=== PATIENT | male | born 1950 | race Two or more races ===

== ENCOUNTER → 2017-04-16 | Outpatient (CLI) | payer MEDICARE, OTHER ==
[2017-04-16 09:17] LABS: Basophils # (auto) 0 uL; Basophils % (auto) 0.8 % (0.0-2.0); CONDITION Y; Eosinophils # (auto) 0.2 uL; Eosinophils % (auto) 3.9 % (0.0-7.0); Hematocrit 49.9 % (41.0-53.0); Lymphocytes # (auto) 1.7 uL; Lymphocytes % (auto) 30.7 % (10.0-50.0); Mean Corpuscular Hemoglobin 29.2 pg (28.0-32.0); Mean Corpuscular Hgb Conc. 34.1 g/dL (32.0-36.0); Mean Corpuscular Volume 85.7 fL (80.0-100.0); Mean Platelet Volume 10.1 fL (7.4-10.4); Monocytes # (auto) 0.4 uL; Monocytes % (auto) 6.8 % (0.0-12.0); Neutrophils # (auto) 3.1 uL; Neutrophils % (auto) 57.8 % (37.0-80.0); Platelet Count (auto) 188 10^3/uL (140-450); Red Cell Distribution Width 13.4 % (11.6-16.0); White Blood Cell 5.4 10^3/uL (4.4-10.8)
[2017-04-16 09:28] LABS: Urine Bilirubin Negative (Negative); Urine Blood TRACE /uL (Negative); Urine Color Yellow (Yellow); Urine Glucose Normal (Normal); Urine Ketone Negative (Negative); Urine Mucus FEW (None Seen); Urine Nitrite Negative (Negative); Urine RBC 1 /hpf (0 - 3); Urine Squamous Epithelial Cell FEW /hpf (<5); Urine Urobilinogen Normal (Negative); Urine pH 5.5 (5.0-8.0)
[2017-04-16 10:08] LABS: Albumin 3.8 g/dL (3.4-5.0); BUN/Creatinine Ratio 16.8; Bilirubin, Total 0.8 mg/dL (0.2-1.0); Calcium 8.6 mg/dL (8.5-10.1); Potassium 4.1 mmol/L (3.5-5.1); Total Protein 7.2 g/dL (6.4-8.2)
== END | disposition home or self-care (01) ==
LOC: LAB 07:05
PROVIDERS: ATTEND Internal Medicine
DX: Z00.00 Encounter for general adult medical examination without abnormal findings (principal); I10 Essential (primary) hypertension; E78.2 Mixed hyperlipidemia; E55.9 Vitamin D deficiency, unspecified
CPT/HCPCS: 36415; 80053; 80061; 81001; 82306; 84153; 85025

== ENCOUNTER → 2018-06-10 | Outpatient (CLI) | payer MEDICARE, OTHER ==
[2018-06-10 10:57] LABS: Basophils # (auto) 0 uL; Basophils % (auto) 0.7 % (0.0-2.0); Eosinophils # (auto) 0.2 uL; Eosinophils % (auto) 3.7 % (0.0-7.0); Hematocrit 49.7 % (41.0-53.0); Hemoglobin 16.8 g/dL (13.5-17.5); Lymphocytes # (auto) 1.9 uL; Lymphocytes % (auto) 31.5 % (10.0-50.0); Mean Corpuscular Hgb Conc. 33.9 g/dL (32.0-36.0); Mean Corpuscular Volume 85.5 fL (80.0-100.0); Monocytes # (auto) 0.4 uL; Monocytes % (auto) 6.8 % (0.0-12.0); Neutrophils # (auto) 3.4 uL; Neutrophils % (auto) 57.3 % (37.0-80.0); Nucleated Red Blood Cells % 0.2 %; Platelet Count (auto) 177 10^3/uL (140-450); Red Blood Cells 5.81 10^6/uL (4.5-5.90); Red Cell Distribution Width 13.8 % (11.8-14.3); White Blood Cell 5.9 10^3/uL (4.4-10.8)
[2018-06-10 12:19] LABS: Albumin 3.8 g/dL (3.4-5.0); BUN/Creatinine Ratio 21.7; Bilirubin, Total 0.8 mg/dL (0.2-1.0); Potassium 4.7 mmol/L (3.5-5.1); Total Protein 7.3 g/dL (6.4-8.2)
== END | disposition home or self-care (01) ==
LOC: LAB 10:02
PROVIDERS: ATTEND Physician Assistant
DX: K21.9 Gastro-esophageal reflux disease without esophagitis (principal); K75.81 Nonalcoholic steatohepatitis (NASH); L40.9 Psoriasis, unspecified; F41.9 Anxiety disorder, unspecified; E78.2 Mixed hyperlipidemia; R01.1 Cardiac murmur, unspecified
CPT/HCPCS: 36415; 80053; 80061; 85025

== ENCOUNTER → 2019-02-08 | Outpatient (CLI) | payer MEDICARE, OTHER | END | disposition home or self-care (01) | LOC: LAB 13:42 | PROVIDERS: ATTEND Registered Nurse General Practice | DX: N39.0 Urinary tract infection, site not specified (principal) | CPT/HCPCS: 87086 ==

== ENCOUNTER → 2019-02-18 | Outpatient (CLI) | payer MEDICARE, OTHER ==
[2019-02-18 15:48] LABS: Urine Bacteria NONE SEEN /hpf (None Seen); Urine Blood Negative /uL (Negative); Urine Mucus FEW (None Seen); Urine Specific Gravity 1.032 (1.001-1.035); Urine WBC 1 /hpf (0 - 3)
== END | disposition home or self-care (01) ==
LOC: LAB 14:50
PROVIDERS: ATTEND Urology
DX: R39.0 Extravasation of urine (principal)
CPT/HCPCS: 81001; 87086

== ENCOUNTER → 2019-03-19 | Day surgery (SDC) | payer MEDICARE, OTHER ==
[2019-03-16 11:08] LABS: Basophils # (auto) 0.1 uL; Basophils % (auto) 0.9 % (0.0-2.0); Eosinophils # (auto) 0.2 uL; Eosinophils % (auto) 3.6 % (0.0-7.0); Hematocrit 50.6 % (41.0-53.0); Hemoglobin 17.4 g/dL (13.5-17.5); Lymphocytes # (auto) 1.4 uL; Lymphocytes % (auto) 23.6 % (10.0-50.0); Mean Corpuscular Hemoglobin 29.7 pg (28.0-32.0); Mean Corpuscular Hgb Conc. 34.3 g/dL (32.0-36.0); Mean Corpuscular Volume 86.6 fL (80.0-100.0); Monocytes # (auto) 0.5 uL; Monocytes % (auto) 8.6 % (0.0-12.0); Neutrophils # (auto) 3.8 uL; Neutrophils % (auto) 63.3 % (37.0-80.0); Nucleated Red Blood Cells % 0.8 %; Platelet Count (auto) 172 10^3/uL (140-450); Red Blood Cells 5.85 10^6/uL (4.5-5.90); Red Cell Distribution Width 13.8 % (11.8-14.3)
[2019-03-16 11:25] LABS: INR 1.06 (0.9-1.15); Partial Thromboplastin Time 27.8 sec (23.64-32.05); Prothrombin Time 11.4 sec (9.06-12.60)
[~2019-03-19] VITALS: Ht 170.2 cm; Wt 74.8 kg
[~2019-03-19] MED LIST: DIAZ10TA PO; SODIUM CHLORIDE LOCK 10 ML ONE; TAM04C PO; diphenhdrAMINE HCL 50 MG/1 ML VL ONE
[2019-03-19] MEDS: fentaNYL CITRATE 100 MCG/2 ML VL ONE ×2 (10:00→10:03)
[2019-03-19] MEDS: MIDAZOLAM HCL 5 MG/ML-1ML VIAL ONE ×2 (10:00→10:03)
[2019-03-19 10:39] VITALS: BP 107/70
== END | disposition home or self-care (01) ==
LOC: GI 07:46
PROVIDERS: ATTEND Internal Medicine Gastroenterology
DX: Z12.11 Encounter for screening for malignant neoplasm of colon (principal); K64.8 Other hemorrhoids; Z98.890 Other specified postprocedural states; Z91.041 Radiographic dye allergy status
CPT/HCPCS: 36415; 85025; 85610; 85730; G0121; J1200; J2250; J3010; J7030; G0500

== ENCOUNTER → 2019-03-29 | Outpatient (CLI) | payer MEDICARE, OTHER ==
[~2019-03-29] MED LIST changes: -SODIUM CHLORIDE LOCK 10 ML ONE; -diphenhdrAMINE HCL 50 MG/1 ML VL ONE
== END | disposition home or self-care (01) ==
LOC: LAB 10:10
PROVIDERS: ATTEND Urology
DX: N40.0 Benign prostatic hyperplasia without lower urinary tract symptoms (principal)
CPT/HCPCS: 84153

== ENCOUNTER → 2019-04-19 | Outpatient (CLI) | payer MEDICARE, OTHER ==
[2019-04-19 09:32] LABS: Basophils # (auto) 0 uL; Basophils % (auto) 0.8 % (0.0-2.0); Eosinophils # (auto) 0.2 uL; Eosinophils % (auto) 3.3 % (0.0-7.0); Hematocrit 48.1 % (41.0-53.0); Hemoglobin 16.3 g/dL (13.5-17.5); Lymphocytes # (auto) 1.3 uL; Mean Corpuscular Hemoglobin 29.4 pg (28.0-32.0); Mean Corpuscular Hgb Conc. 33.8 g/dL (32.0-36.0); Mean Corpuscular Volume 86.9 fL (80.0-100.0); Monocytes # (auto) 0.4 uL; Monocytes % (auto) 8.5 % (0.0-12.0); Neutrophils # (auto) 3.2 uL; Neutrophils % (auto) 61.4 % (37.0-80.0); Nucleated Red Blood Cells % 0.2 %; Platelet Count (auto) 141 10^3/uL (140-450); Red Blood Cells 5.54 10^6/uL (4.5-5.90); Red Cell Distribution Width 13.7 % (11.8-14.3); White Blood Cell 5.2 10^3/uL (4.4-10.8)
[2019-04-19 09:50] LABS: Albumin 4.1 g/dL (3.4-5.0); Calcium 8.6 mg/dL (8.5-10.1); Potassium 4.1 mmol/L (3.5-5.1)
[2019-04-19 09:56] LABS: Bilirubin, Total 0.8 mg/dL (0.2-1.0); Total Protein 7.3 g/dL (6.4-8.2)
== END | disposition home or self-care (01) ==
LOC: LAB 08:29
PROVIDERS: ATTEND Physician Assistant
DX: N40.0 Benign prostatic hyperplasia without lower urinary tract symptoms (principal); E78.2 Mixed hyperlipidemia; K75.81 Nonalcoholic steatohepatitis (NASH)
CPT/HCPCS: 36415; 80053; 80061; 84153; 85025

== ENCOUNTER 2021-09-14 11:40 | Emergency (ER) | payer MEDICARE, OTHER ==
[~2021-09-14] VITALS: Ht 170.2 cm; Wt 74.8 kg
[2021-09-14 14:16] LABS: Basophils # (auto) 0.1 10 ^3/uL (0-0.2); Basophils % (auto) 1.2 % (0.0-2.0); Eosinophils # (auto) 0.2 10 ^3/uL (0-0.8); Eosinophils % (auto) 3.9 % (0.0-7.0); Hemoglobin 17.3 g/dL (13.5-17.5); Lymphocytes # (auto) 1.5 10 ^3/uL (0.4-5.4); Lymphocytes % (auto) 28.2 % (10.0-50.0); Mean Corpuscular Hemoglobin 29.5 pg (28.0-32.0); Mean Corpuscular Hgb Conc. 33.9 g/dL (32.0-36.0); Monocytes # (auto) 0.3 10 ^3/uL (0-1.3); Monocytes % (auto) 4.9 % (0.0-12.0); Neutrophils # (auto) 3.3 10 ^3/uL (1.6-8.6); Neutrophils % (auto) 61.8 % (37.0-80.0); Nucleated Red Blood Cells % 0.1 %; Red Blood Cells 5.86 10^6/uL (4.5-5.90); Red Cell Distribution Width 13.5 % (11.8-14.3); White Blood Cell 5.4 10^3/uL (4.4-10.8)
[2021-09-14 14:32] LABS: Albumin 3.9 g/dL (3.4-5.0); Calcium 8.2 mg/dL (8.5-10.1); Potassium 3.9 mmol/L (3.5-5.1)
[2021-09-14 14:34] LABS: BUN/Creatinine Ratio 21.9; Bilirubin, Total 0.9 mg/dL (0.2-1.0); Total Protein 7.3 g/dL (6.4-8.2)
[2021-09-14 14:45] LABS: Urine WBC None Seen /hpf (0 - 3)
[2021-09-14 15:10] LABS: Urine Bacteria NONE SEEN /hpf (None Seen); Urine Blood 1+ /uL (Negative); Urine Mucus FEW (None Seen); Urine Specific Gravity 1.029 (1.001-1.035)
[2021-09-14 15:34] VITALS: BP 107/77
[2021-09-14] MEDS ORDERED: BETA0.0534 TOP (20:07)
[2021-09-14] MEDS ORDERED: DIAZ10TA3 PO (20:07)
[2021-09-14] MEDS ORDERED: ATOR10TA52 PO (20:07)
[2021-09-14] MEDS ORDERED: ALFU10TA33 PO (20:07)
== END 2021-09-14 15:42 | disposition home or self-care (01) ==
LOC: ER 11:40
DX: G45.9 Transient cerebral ischemic attack, unspecified (principal)
CPT/HCPCS: 36415; 70450; 80053; 81001; 85025; 93005

== ENCOUNTER 2021-09-14 15:59 | Inpatient (IN) | payer MEDICARE, OTHER ==
[~2021-09-14] VITALS: Ht 170.2 cm; Wt 76.7 kg
[2021-09-14] MEDS ORDERED: traMADol HCL 50 MG TAB PO PRN (16:15)
[2021-09-14] MEDS ORDERED: MORPHINE SULFATE INJECTION 2 MG/ML SYRG IV PRN (16:15)
[2021-09-14] MEDS ORDERED: LABETALOL HCL 5 MG/ML ML 20ML VIAL IV PRN (16:15)
[2021-09-14] MEDS ORDERED: ACETAMINOPHEN 500 MG TAB PO PRN (16:15)
[2021-09-14] MEDS ORDERED: SODIUM CHLORIDE 0.9% 1,000 ML IV SCH (16:15)
[2021-09-14] MEDS ORDERED: NITROGLYCERIN 0.4 MG SL TAB SL PRN (16:15)
[2021-09-14] MEDS ORDERED: ONDANSETRON HCL 4 MG/2 ML VIAL IV PRN (16:15)
[2021-09-14] MEDS ORDERED: LACTULOSE 20Gm/30ML SOLN PO PRN ×2 (16:15→17:00)
[2021-09-14] MEDS ORDERED: diazePAM 5 MG TAB PO PRN (16:45)
[2021-09-14 17:02] VITALS: BP 113/70
[2021-09-14] MEDS ORDERED: BETA0.0534 TOP (20:07)
[2021-09-14] MEDS ORDERED: ALFU10TA33 PO (20:07)
[2021-09-14] MEDS ORDERED: DIAZ10TA3 PO (20:07)
[2021-09-14] MEDS ORDERED: ATOR10TA52 PO (20:07)
[2021-09-14] MEDS: SODIUM CHLORIDE 0.9% 1,000 ML IV SCH (20:30)
[2021-09-14] MEDS: ALFUZOSIN 10 MG PO SCH (21:15)
[2021-09-14] MEDS ORDERED: ATORVASTATIN 20 MG TAB PO SCH (22:00)
[2021-09-14 22:27] VITALS: BP 116/69
[2021-09-15 05:00] VITALS: BP 116/68
[2021-09-15] MEDS: SODIUM CHLORIDE 0.9% 1,000 ML IV SCH ×3 (05:05→17:41)
[2021-09-15 09:00] VITALS: BP 129/75
[2021-09-15] MEDS ORDERED: TAMSULOSIN HYDROCHLORIDE 0.4 MG CAP PO SCH (10:00)
[2021-09-15] MEDS: ENOXAPARIN SOD 40 MG/0.4 ML SYRINGE SC SCH (10:08)
[2021-09-15] MEDS: ASPirin 81 mg TAB PO SCH (10:08)
[2021-09-15] MEDS: ALFUZOSIN 10 MG PO SCH (10:30)
[2021-09-15 13:00] VITALS: BP 110/71
[2021-09-15 17:00] VITALS: BP 115/72
[2021-09-15 20:00] VITALS: BP 150/82
[2021-09-15] MEDS: ATORVASTATIN 20 MG TAB PO SCH (21:53)
[2021-09-15 22:12] VITALS: BP 150/82
[2021-09-16] MEDS: SODIUM CHLORIDE 0.9% 1,000 ML IV SCH (02:20)
[2021-09-16 05:19] VITALS: BP 122/75
[2021-09-16 06:54] LABS: Basophils # (auto) 0 10 ^3/uL (0-0.2); Basophils % (auto) 0.8 % (0.0-2.0); Eosinophils # (auto) 0.2 10 ^3/uL (0-0.8); Eosinophils % (auto) 4.3 % (0.0-7.0); Hematocrit 44.1 % (41.0-53.0); Hemoglobin 15.2 g/dL (13.5-17.5); Lymphocytes # (auto) 1.3 10 ^3/uL (0.4-5.4); Lymphocytes % (auto) 28.1 % (10.0-50.0); Mean Corpuscular Hemoglobin 29.7 pg (28.0-32.0); Mean Corpuscular Hgb Conc. 34.4 g/dL (32.0-36.0); Mean Corpuscular Volume 86.3 fL (80.0-100.0); Monocytes # (auto) 0.4 10 ^3/uL (0-1.3); Monocytes % (auto) 7.7 % (0.0-12.0); Neutrophils # (auto) 2.8 10 ^3/uL (1.6-8.6); Neutrophils % (auto) 59.1 % (37.0-80.0); Nucleated Red Blood Cells % 0.1 %; Red Blood Cells 5.11 10^6/uL (4.5-5.90); Red Cell Distribution Width 13.2 % (11.8-14.3); White Blood Cell 4.7 10^3/uL (4.4-10.8)
[2021-09-16 07:11] LABS: BUN/Creatinine Ratio 17.2; Calcium 7.6 mg/dL (8.5-10.1); Potassium 3.8 mmol/L (3.5-5.1)
[2021-09-16 07:14] LABS: Bilirubin, Total 0.7 mg/dL (0.2-1.0)
[2021-09-16 08:50] VITALS: BP 118/75
[2021-09-16] MEDS ORDERED: IOHEXOL 350 MG/ML 100ML IJ ONE (10:09)
[2021-09-16] MEDS ORDERED: LORazepam 2MG/ML-1ML VIAL IV ONE (10:30)
[2021-09-16] MEDS: ASPirin 81 mg TAB PO SCH (12:16)
[2021-09-16] MEDS: ENOXAPARIN SOD 40 MG/0.4 ML SYRINGE SC SCH (12:17)
[2021-09-16] MEDS: ALFUZOSIN 10 MG PO SCH ×2 (12:17→21:22)
[2021-09-16 12:30] VITALS: BP 147/82
[2021-09-16 13:00] VITALS: BP 147/82
[2021-09-16 17:00] VITALS: BP 127/79
[2021-09-16] MEDS: ATORVASTATIN 20 MG TAB PO SCH (21:22)
[2021-09-16 21:31] LABS: Cholesterol 108 mg/dL (< 200)
[2021-09-16 21:33] LABS: HDL Cholesterol 37 mg/dL (40-59); LDL Cholesterol 55 mg/dL (< 100); Triglycerides 103 mg/dL (< 150)
[2021-09-16 22:00] VITALS: BP 125/83
[2021-09-17 05:00] VITALS: BP 106/71
[2021-09-17 06:07] LABS: Basophils # (auto) 0 10 ^3/uL (0-0.2); Basophils % (auto) 0.9 % (0.0-2.0); Eosinophils # (auto) 0.2 10 ^3/uL (0-0.8); Eosinophils % (auto) 4.6 % (0.0-7.0); Hematocrit 44.9 % (41.0-53.0); Hemoglobin 15.4 g/dL (13.5-17.5); Lymphocytes # (auto) 1.3 10 ^3/uL (0.4-5.4); Lymphocytes % (auto) 26.2 % (10.0-50.0); Mean Corpuscular Hemoglobin 29.4 pg (28.0-32.0); Mean Corpuscular Hgb Conc. 34.3 g/dL (32.0-36.0); Mean Corpuscular Volume 85.8 fL (80.0-100.0); Monocytes # (auto) 0.4 10 ^3/uL (0-1.3); Monocytes % (auto) 7.3 % (0.0-12.0); Neutrophils # (auto) 3.1 10 ^3/uL (1.6-8.6); Red Blood Cells 5.24 10^6/uL (4.5-5.90); Red Cell Distribution Width 13.5 % (11.8-14.3); White Blood Cell 5.1 10^3/uL (4.4-10.8)
[2021-09-17 06:21] LABS: Potassium 3.8 mmol/L (3.5-5.1)
[2021-09-17 06:26] LABS: Albumin 3.2 g/dL (3.4-5.0); BUN/Creatinine Ratio 20.2; Calcium 8.2 mg/dL (8.5-10.1)
[2021-09-17 06:38] LABS: Bilirubin, Total 0.7 mg/dL (0.2-1.0); Total Protein 6.1 g/dL (6.4-8.2)
[2021-09-17 08:57] VITALS: BP 118/78
[2021-09-17] MEDS: ASPirin 81 mg TAB PO SCH (09:14)
[2021-09-17] MEDS: ENOXAPARIN SOD 40 MG/0.4 ML SYRINGE SC SCH (09:15)
[2021-09-17] MEDS: ALFUZOSIN 10 MG PO SCH (09:16)
[2021-09-17 12:57] VITALS: BP 116/71
[2021-09-17 16:50] VITALS: BP 108/75
[2021-09-17] MEDS: ATORVASTATIN 20 MG TAB PO SCH (21:49)
[2021-09-17 22:00] VITALS: BP 116/71
[2021-09-17] MEDS ORDERED: ALFUZOSIN 10 MG PO SCH (22:00)
[2021-09-18 05:24] VITALS: BP 107/71
[2021-09-18 06:25] LABS: Basophils # (auto) 0 10 ^3/uL (0-0.2); Basophils % (auto) 0.4 % (0.0-2.0); Eosinophils # (auto) 0.2 10 ^3/uL (0-0.8); Hematocrit 46.3 % (41.0-53.0); Hemoglobin 15.9 g/dL (13.5-17.5); Lymphocytes # (auto) 1.3 10 ^3/uL (0.4-5.4); Lymphocytes % (auto) 26.2 % (10.0-50.0); Mean Corpuscular Hemoglobin 29.6 pg (28.0-32.0); Mean Corpuscular Hgb Conc. 34.4 g/dL (32.0-36.0); Mean Corpuscular Volume 86.2 fL (80.0-100.0); Monocytes # (auto) 0.4 10 ^3/uL (0-1.3); Monocytes % (auto) 8.1 % (0.0-12.0); Neutrophils # (auto) 3.1 10 ^3/uL (1.6-8.6); Neutrophils % (auto) 61.3 % (37.0-80.0); Nucleated Red Blood Cells % 0.1 %; Red Blood Cells 5.37 10^6/uL (4.5-5.90); Red Cell Distribution Width 13.5 % (11.8-14.3); White Blood Cell 5.1 10^3/uL (4.4-10.8)
[2021-09-18 06:43] LABS: Potassium 3.9 mmol/L (3.5-5.1)
[2021-09-18 06:54] LABS: Albumin 3.4 g/dL (3.4-5.0); BUN/Creatinine Ratio 18.4; Bilirubin, Total 0.9 mg/dL (0.2-1.0); Calcium 7.9 mg/dL (8.5-10.1); Total Protein 6.3 g/dL (6.4-8.2)
[2021-09-18] MEDS: ASPirin 81 mg TAB PO SCH (08:58)
[2021-09-18] MEDS: ENOXAPARIN SOD 40 MG/0.4 ML SYRINGE SC SCH (08:59)
[2021-09-18 09:00] VITALS: BP 110/75
[2021-09-18 12:13] VITALS: BP 110/75
== END 2021-09-18 14:45 | disposition home or self-care (01) | DRG 69 ==
LOC: TELE-WESTW 15:59
PROVIDERS: ADMIT Internal Medicine; ATTEND Family Medicine
DX: G45.9 Transient cerebral ischemic attack, unspecified (principal); N40.0 Benign prostatic hyperplasia without lower urinary tract symptoms; L40.9 Psoriasis, unspecified; K21.9 Gastro-esophageal reflux disease without esophagitis; I10 Essential (primary) hypertension; R26.9 Unspecified abnormalities of gait and mobility; E78.5 Hyperlipidemia, unspecified; F17.200 Nicotine dependence, unspecified, uncomplicated; F32.A Depression, unspecified; F41.9 Anxiety disorder, unspecified; M19.90 Unspecified osteoarthritis, unspecified site; Z20.822 Contact with and (suspected) exposure to COVID-19; E55.9 Vitamin D deficiency, unspecified; K76.0 Fatty (change of) liver, not elsewhere classified; Z79.82 Long term (current) use of aspirin; Z79.899 Other long term (current) drug therapy; Z86.73 Personal history of transient ischemic attack (TIA), and cerebral infarction without residual deficits; Z91.041 Radiographic dye allergy status
CPT/HCPCS: 36415; 70496; 70498; 70551; 71045; 80053; 80061; 82550; 84443; 84484; 85025; 85379; 87426; 93306; 93886; 97110; 97116; 97163; 97530; G0378

== ENCOUNTER → 2021-10-01 | Outpatient (CLI) | payer MEDICARE, OTHER ==
[~2021-10-01] MED LIST changes: +ALFU10TA33 PO; +ATOR10TA52 PO; +BETA0.0534 TOP; -DIAZ10TA PO; +DIAZ10TA3 PO; -TAM04C PO
[2021-10-01 13:16] LABS: Albumin 3.8 g/dL (3.4-5.0); Bilirubin, Direct 0.3 mg/dL (0-0.2)
[2021-10-01 13:19] LABS: Bilirubin, Total 0.8 mg/dL (0.2-1.0)
== END | disposition home or self-care (01) ==
LOC: LAB 11:55
PROVIDERS: ATTEND Internal Medicine
DX: E78.5 Hyperlipidemia, unspecified (principal)
CPT/HCPCS: 36415; 80061; 80076

== ENCOUNTER 2022-02-26 20:33 | Emergency (ER) | payer MEDICARE, OTHER ==
[~2022-02-26] VITALS: Ht 170.2 cm; Wt 77.1 kg
[2022-02-26 22:50] VITALS: BP 135/70
== END 2022-02-26 23:51 | disposition home or self-care (01) ==
LOC: EDBD 20:33 → EDSEX 20:33 → ER 20:35
DX: S09.8XXA Other specified injuries of head, initial encounter (principal); M54.2 Cervicalgia; M25.512 Pain in left shoulder; M79.18 Myalgia, other site; V43.52XA Car driver injured in collision with other type car in traffic accident, initial encounter; Y93.89 Activity, other specified; Y92.488 Other paved roadways as the place of occurrence of the external cause; Y99.8 Other external cause status
CPT/HCPCS: 70450; 72125; 72131; 73020

== ENCOUNTER → 2023-01-27 | Outpatient (CLI) | payer MEDICARE, OTHER | END | disposition home or self-care (01) | LOC: XYW 13:30 | PROVIDERS: ATTEND Internal Medicine | DX: I08.2 Rheumatic disorders of both aortic and tricuspid valves (principal) | CPT/HCPCS: 93306 ==

== ENCOUNTER → 2023-01-27 | Outpatient (CLI) | payer MEDICARE, OTHER ==
[2023-01-27 10:22] LABS: Basophils # (auto) 0 10 ^3/uL (0-0.2); Basophils % (auto) 0.9 % (0.0-2.0); Eosinophils # (auto) 0.2 10 ^3/uL (0-0.8); Eosinophils % (auto) 3.6 % (0.0-7.0); Hematocrit 45.9 % (41.0-53.0); Hemoglobin 16.3 g/dL (13.5-17.5); Lymphocytes # (auto) 1.4 10 ^3/uL (0.4-5.4); Mean Corpuscular Hgb Conc. 35.5 g/dL (32.0-36.0); Mean Corpuscular Volume 84.4 fL (80.0-100.0); Monocytes # (auto) 0.4 10 ^3/uL (0-1.3); Monocytes % (auto) 6.8 % (0.0-12.0); Neutrophils # (auto) 3.3 10 ^3/uL (1.6-8.6); Neutrophils % (auto) 61.7 % (37.0-80.0); Nucleated Red Blood Cells % 0.4 %; Red Blood Cells 5.43 10^6/uL (4.5-5.90); Red Cell Distribution Width 13.3 % (11.8-14.3); White Blood Cell 5.3 10^3/uL (4.4-10.8)
[2023-01-27 10:51] LABS: Calcium 8.5 mg/dL (8.5-10.1); Potassium 4.2 mmol/L (3.5-5.1)
[2023-01-27 10:54] LABS: BUN/Creatinine Ratio 22.2 (10.0-20.0)
== END | disposition home or self-care (01) ==
LOC: LAB 09:51
PROVIDERS: ATTEND Internal Medicine
DX: I51.7 Cardiomegaly (principal); R42 Dizziness and giddiness; Z79.899 Other long term (current) drug therapy
CPT/HCPCS: 36415; 80048; 80061; 85025; 85379; 85652

== ENCOUNTER → 2023-05-16 | Outpatient (CLI) | payer MEDICARE, OTHER ==
[~2023-05-16] MED LIST changes: -ALFU10TA33 PO; +ALFU1TAB15 PO
[2023-05-16 13:33] LABS: Basophils # (auto) 0 10 ^3/uL (0-0.2); Basophils % (auto) 0.8 % (0.0-2.0); Eosinophils # (auto) 0.1 10 ^3/uL (0-0.8); Eosinophils % (auto) 2.3 % (0.0-7.0); Hemoglobin 15.6 g/dL (13.5-17.5); Lymphocytes # (auto) 1.5 10 ^3/uL (0.4-5.4); Lymphocytes % (auto) 29.1 % (10.0-50.0); Mean Corpuscular Hemoglobin 29.7 pg (28.0-32.0); Mean Corpuscular Hgb Conc. 33.9 g/dL (32.0-36.0); Mean Corpuscular Volume 87.8 fL (80.0-100.0); Monocytes # (auto) 0.4 10 ^3/uL (0-1.3); Monocytes % (auto) 7.7 % (0.0-12.0); Neutrophils # (auto) 3.1 10 ^3/uL (1.6-8.6); Neutrophils % (auto) 60.1 % (37.0-80.0); Nucleated Red Blood Cells % 0.1 %; Red Blood Cells 5.24 10^6/uL (4.5-5.90); Red Cell Distribution Width 14.1 % (11.8-14.3); White Blood Cell 5.2 10^3/uL (4.4-10.8)
== END | disposition home or self-care (01) ==
LOC: LAB 05-09 15:17
PROVIDERS: ATTEND Internal Medicine
DX: Z12.11 Encounter for screening for malignant neoplasm of colon (principal); E78.5 Hyperlipidemia, unspecified; I10 Essential (primary) hypertension
CPT/HCPCS: 36415; 85025

== ENCOUNTER → 2023-09-12 | Outpatient (CLI) | payer MEDICARE, OTHER | END | disposition home or self-care (01) | LOC: LAB 14:33 | PROVIDERS: ATTEND Internal Medicine | DX: I10 Essential (primary) hypertension (principal); R00.2 Palpitations; E78.5 Hyperlipidemia, unspecified | CPT/HCPCS: 36415; 82550; 84403; 84443 ==